=== PATIENT | female | born 1980 | race Caucasian/White ===

== ENCOUNTER 2018-10-12 18:42 | Emergency (ER) | payer OTHER ==
[2018-10-12 19:32] LABS: EOS # 0.1 (0.04-0.40); EOS % 0.8 % (1.0-5.0); HEMATOCRIT 40.5 % (37.0-47.0); HEMOGLOBIN 13.3 g/dL (12.5-16.0); MEAN CELL VOLUME 91 fl (78-100); MEAN CORPUSCULAR HEMOGLOBIN 30 pg (27-31); MEAN CORPUSCULAR HGB CONC 33 g/dL (33-37); MEAN PLATELET VOLUME 9.8 fl (7.4-10.4); MONO # 1.3 (0.20-0.80); PLATELET COUNT 344 K/mm3 (130-400); RED BLOOD COUNT 4.45 M/mm3 (4.10-5.30); RED CELL DISTRIBUTION WIDTH 13.9 % (11.5-14.5); WHITE BLOOD COUNT 13.9 K/mm3 (4.8-10.8)
[2018-10-12 19:39] LABS: ALBUMIN 4.4 g/dL (3.5-5.0); POTASSIUM 3.6 mmol/L (3.5-5.1)
[2018-10-12 19:40] LABS: CALCIUM 9.3 mg/dL (8.3-10.5)
[2018-10-12 19:43] LABS: TOTAL BILIRUBIN 0.4 mg/dL (0.2-1.2)
[2018-10-12 19:48] LABS: NEU # 10.4 (1.40-6.50)
[2018-10-12 19:55] LABS: URINE APPEARANCE HAZY; URINE COLOR YELLOW
[2018-10-12 19:56] LABS: URINE BILIRUBIN NEGATIVE (NEGATIVE); URINE BLOOD 50 ery/uL (NEGATIVE); URINE GLUCOSE NEGATIVE (NEGATIVE); URINE KETONE 1+ (NEGATIVE); URINE LEUKOCYTE ESTERASE 1+ (NEGATIVE); URINE NITRATE POSITIVE (NEGATIVE); URINE PROTEIN(semi-quant) TRACE mg/dL (NEGATIVE); URINE UROBILINOGEN NORMAL (NORMAL); URINE WBC 16-30 /hpf (0-3)
[2018-10-12 19:57] LABS: URINE MUCUS PRESENT (NOT PRESENT)
[2018-10-12] MEDS ORDERED: SEPTRA DS 8001 TAB PO (23:53)
[2018-10-13 00:29] VITALS: BP 146/90
== END 2018-10-13 00:30 | disposition home or self-care (01) ==
LOC: ED 18:42
PROVIDERS: Family Medicine
DX: S60.211A Contusion of right wrist, initial encounter (principal); S40.012A Contusion of left shoulder, initial encounter; G43.909 Migraine, unspecified, not intractable, without status migrainosus; F99 Mental disorder, not otherwise specified; R40.2410 Glasgow coma scale score 13-15, unspecified time; X78.8XXA Intentional self-harm by other sharp object, initial encounter; Y92.009 Unspecified place in unspecified non-institutional (private) residence as the place of occurrence of the external cause